=== PATIENT | female | born 1955 | race Caucasian/White ===

== ENCOUNTER → 2021-11-18 | Outpatient (CLI) | payer BC ==
[~2021-11-18] MED LIST: ALBU90OI6 INH; AZIT500 PO; BENZ100A PO; DIPATR PO; RXDIPATR PO; TOPI25 PO
== END ==
LOC: LAB SHORT 18:40
DX: R35.0 Frequency of micturition (principal)
CPT/HCPCS: 87086

== ENCOUNTER 2023-10-23 11:44 | Day surgery (SDC) | payer OTHER ==
[~2023-10-23] VITALS: Ht 170.2 cm; Wt 98.2 kg
[~2023-10-23 11:44] MED LIST changes: +Balanced Salt Epinephrine Irrigation Solution 500 mL IR SCH; +FentaNYL Citrate 50 MCG/ML 2 ML Injection ONE; +Lidocaine HCl/Pf 1% 5 ML VIAL XX SCH; +Midazolam HCl 1MG / ML 2ML Vial ONE; +Moxifloxacin HCL 0.5 MG/0.1 ML 0.4MLSYR LEFTEYE SCH; +NS 500 ML IV ONE; +PHENYLEPHRINE\\TROPICAMIDE\\TETRACAINE OPHTHALMIC DILATING SOLN LEFTEYE PRN; +Povidone-Iodine 450 DROP/30 ML Solution LEFTEYE SCH; +Povidone-Iodine 450 DROP/30 ML Solution ONE
[2023-10-23] MEDS ORDERED: MYRBETRIQ25 MG PO (12:01)
[2023-10-23] MEDS ORDERED: VENLAFAXINE HC225 MG (12:01)
[2023-10-23] MEDS ORDERED: ZOLPIDEM TARTRA10 MG PO (12:01)
[2023-10-23] MEDS ORDERED: NS 500 ML IV ONE (12:11)
--- NOTE | 2023-10-23 12:11 | NUR ---
10/23/23 1211 Kailee Jacques CALL LIGHT WITHIN [facility]. TETRACAINE IN LEFT EYE AT 1202 AND PLEDGETT IN AT 1205
[2023-10-23] MEDS ORDERED: Tetracaine HCl 0.5% Opth Soln 15 ml LEFTEYE ONE (12:53)
[2023-10-23 13:17] VITALS: BP 133/66
--- NOTE | 2023-10-23 13:50 | NUR ---
10/23/23 1350 Alejandro Catalan PT INITIALLY MAINTAINING O2 92-98 IN SDU WITH BREIF DROPS TO 90. PT WAS ABLE TO RAISE O2 >94% WITH DEEP BREATHS. SHE DENIED RESPIRATORY AND CARDIAC SYMPTOMS--INCLUDING SOB, CP, DIZZINESS, AND WEAKNESS--AND NONE WERE OBSERVED. PT MOVED FROM BED TO RECLINER AT 1321 AND PULSE OXIMETER WAS SWITCHED FROM LEFT HAND TO RIGHT HAND. PT MAINTAINED O2 GREATER THAN 92% THROUGHOUT REST OF HER STAY IN SDU.
== END 2023-10-23 13:40 | disposition home or self-care (01) ==
LOC: ORSCSDS 11:44
PROVIDERS: Student in an Organized Health Care Education/Training Program
PROC: 08RK3JZ Replacement of Left Lens with Synthetic Substitute, Percutaneous Approach (ICD-10-PCS; principal; 2023-10-23 13:00)
DX: H25.12 Age-related nuclear cataract, left eye (principal); F32.A Depression, unspecified; K21.9 Gastro-esophageal reflux disease without esophagitis; G50.0 Trigeminal neuralgia; Z79.899 Other long term (current) drug therapy
CPT/HCPCS: J2250; J3010; J7040; V2632

== ENCOUNTER → 2025-05-03 | Outpatient (CLI) | payer OTHER ==
[~2025-05-03] MED LIST changes: -Balanced Salt Epinephrine Irrigation Solution 500 mL IR SCH; -FentaNYL Citrate 50 MCG/ML 2 ML Injection ONE; -Lidocaine HCl/Pf 1% 5 ML VIAL XX SCH; +MYRBETRIQ25 MG PO; -Midazolam HCl 1MG / ML 2ML Vial ONE; -Moxifloxacin HCL 0.5 MG/0.1 ML 0.4MLSYR LEFTEYE SCH; -NS 500 ML IV ONE; -PHENYLEPHRINE\\TROPICAMIDE\\TETRACAINE OPHTHALMIC DILATING SOLN LEFTEYE PRN; -Povidone-Iodine 450 DROP/30 ML Solution LEFTEYE SCH; -Povidone-Iodine 450 DROP/30 ML Solution ONE; +VENLAFAXINE HC225 MG; +ZOLPIDEM TARTRA10 MG PO
== END ==
LOC: LAB 15:38 → LAB SHORT 15:38
DX: N39.0 Urinary tract infection, site not specified (principal)
CPT/HCPCS: 87086